=== PATIENT | male | born 1970 | race Caucasian/White ===

== ENCOUNTER 2017-08-05 09:05 | Outpatient (CLI) | payer OTHER, SELFPAY | END 2017-08-05 12:04 | PROVIDERS: Family Provider Internal Medicine Adolescent Medicine; Visit Provider Internal Medicine Adolescent Medicine | DX: Z79.01 Long term (current) use of anticoagulants (principal); Z95.2 Presence of prosthetic heart valve; Z51.81 Encounter for therapeutic drug level monitoring | CPT/HCPCS: 85610; 99211; G0463 ==

== ENCOUNTER → 2017-09-15 12:45 | Outpatient (CLI) | payer OTHER, SELFPAY | END | disposition home or self-care (01) | PROVIDERS: Family Provider Internal Medicine Adolescent Medicine; PCP Internal Medicine Adolescent Medicine; Visit Provider Internal Medicine Adolescent Medicine | DX: Z79.01 Long term (current) use of anticoagulants (principal); Z51.81 Encounter for therapeutic drug level monitoring; Z95.2 Presence of prosthetic heart valve | CPT/HCPCS: 85610 ==

== ENCOUNTER → 2017-10-26 15:52 | Outpatient (CLI) | payer OTHER, SELFPAY ==
[2017-10-26 16:15] LABS: PHA INR Fingerstick 2.5 (0.9-1.1)
== END ==
PROVIDERS: Family Provider Internal Medicine Adolescent Medicine; PCP Internal Medicine Adolescent Medicine; Visit Provider Internal Medicine Adolescent Medicine
DX: Z79.01 Long term (current) use of anticoagulants (principal); Z51.81 Encounter for therapeutic drug level monitoring; Z95.2 Presence of prosthetic heart valve
CPT/HCPCS: 85610; 99211; G0463

== ENCOUNTER 2017-11-23 15:56 | Outpatient (CLI) | payer OTHER, SELFPAY | END 2017-11-23 16:44 | disposition home or self-care (01) | LOC: ACC 15:57 | PROVIDERS: Family Provider Internal Medicine Adolescent Medicine; PCP Internal Medicine Adolescent Medicine; Visit Provider Internal Medicine Adolescent Medicine | DX: Z79.01 Long term (current) use of anticoagulants (principal); Z51.81 Encounter for therapeutic drug level monitoring; Z95.2 Presence of prosthetic heart valve | CPT/HCPCS: 85610; 99211; G0463 ==

== ENCOUNTER 2018-01-06 08:57 | Outpatient (CLI) | payer OTHER, SELFPAY | END 2018-01-06 11:23 | disposition home or self-care (01) | LOC: ACC 08:59 | PROVIDERS: PCP Internal Medicine Adolescent Medicine; Visit Provider Internal Medicine Adolescent Medicine | DX: Z79.01 Long term (current) use of anticoagulants (principal); Z51.81 Encounter for therapeutic drug level monitoring; Z95.2 Presence of prosthetic heart valve | CPT/HCPCS: 85610; 99211; G0463 ==

== ENCOUNTER 2018-02-24 08:52 | Outpatient (CLI) | payer OTHER, SELFPAY ==
[2018-02-24 12:03] LABS: PHA INR Fingerstick 2.3 (0.9-1.1)
== END 2018-02-24 12:05 | disposition home or self-care (01) ==
LOC: ACC 08:53
PROVIDERS: PCP Internal Medicine Adolescent Medicine; Visit Provider Internal Medicine Adolescent Medicine
DX: Z79.01 Long term (current) use of anticoagulants (principal); Z51.81 Encounter for therapeutic drug level monitoring
CPT/HCPCS: 85610; 99211; G0463

== ENCOUNTER 2018-04-11 08:06 | Outpatient (CLI) | payer OTHER, SELFPAY ==
[2018-04-11 10:15] LABS: PHA INR Fingerstick 2.4 (0.9-1.1)
== END 2018-04-11 10:19 | disposition home or self-care (01) ==
LOC: ACC 08:07
PROVIDERS: Family Provider Internal Medicine Adolescent Medicine; PCP Internal Medicine Adolescent Medicine; Visit Provider Internal Medicine Adolescent Medicine
DX: Z51.81 Encounter for therapeutic drug level monitoring (principal); Z79.01 Long term (current) use of anticoagulants
CPT/HCPCS: 85610; 99211; G0463

== ENCOUNTER 2018-05-24 15:54 | Outpatient (CLI) | payer OTHER, SELFPAY ==
[2018-05-24 16:17] LABS: PHA INR Fingerstick 2.3 (0.9-1.1)
== END 2018-05-24 16:19 | disposition home or self-care (01) ==
LOC: ACC 15:54
PROVIDERS: Family Provider Internal Medicine Adolescent Medicine; PCP Internal Medicine Adolescent Medicine; Visit Provider Internal Medicine Adolescent Medicine
DX: Z51.81 Encounter for therapeutic drug level monitoring (principal); Z79.01 Long term (current) use of anticoagulants; Z95.2 Presence of prosthetic heart valve
CPT/HCPCS: 85610; 99211; G0463

== ENCOUNTER 2018-06-28 08:58 | Outpatient (CLI) | payer OTHER, SELFPAY | END 2018-06-28 12:15 | disposition home or self-care (01) | LOC: ACC 09:00 | PROVIDERS: PCP Internal Medicine Adolescent Medicine; Visit Provider Internal Medicine Adolescent Medicine | DX: Z79.01 Long term (current) use of anticoagulants (principal); Z95.2 Presence of prosthetic heart valve | CPT/HCPCS: 85610; 99211; G0463 ==

== ENCOUNTER 2018-08-04 09:19 | Outpatient (CLI) | payer OTHER, SELFPAY | END 2018-08-04 15:14 | disposition home or self-care (01) | PROVIDERS: PCP Internal Medicine Adolescent Medicine; Visit Provider Internal Medicine Adolescent Medicine | DX: Z51.81 Encounter for therapeutic drug level monitoring (principal); Z79.01 Long term (current) use of anticoagulants; Z95.2 Presence of prosthetic heart valve | CPT/HCPCS: 85610; 99211; G0463 ==

== ENCOUNTER 2018-09-13 15:48 | Outpatient (CLI) | payer OTHER, SELFPAY ==
[2018-09-13 16:08] LABS: PHA INR Fingerstick 1.9 (0.9-1.1)
== END 2018-09-13 16:10 | disposition home or self-care (01) ==
LOC: ACC 15:48
PROVIDERS: PCP Internal Medicine Adolescent Medicine; Visit Provider Internal Medicine Adolescent Medicine
DX: Z51.81 Encounter for therapeutic drug level monitoring (principal); Z79.01 Long term (current) use of anticoagulants; Z95.2 Presence of prosthetic heart valve
CPT/HCPCS: 85610; 99211; G0463

== ENCOUNTER 2018-10-25 08:47 | Outpatient (CLI) | payer OTHER, SELFPAY ==
[2018-10-25 12:13] LABS: PHA INR Fingerstick 1.9 (0.9-1.1)
== END 2018-10-25 12:15 | disposition home or self-care (01) ==
LOC: ACC 08:48
PROVIDERS: PCP Internal Medicine Adolescent Medicine; Visit Provider Internal Medicine Adolescent Medicine
DX: Z51.81 Encounter for therapeutic drug level monitoring (principal); Z79.01 Long term (current) use of anticoagulants; Z95.2 Presence of prosthetic heart valve
CPT/HCPCS: 85610; 99211; G0463

== ENCOUNTER 2018-12-07 15:58 | Outpatient (CLI) | payer OTHER, SELFPAY | END 2018-12-07 16:24 | disposition home or self-care (01) | LOC: ACC 15:59 | PROVIDERS: PCP Internal Medicine Adolescent Medicine; Visit Provider Internal Medicine Adolescent Medicine | DX: Z51.81 Encounter for therapeutic drug level monitoring (principal); Z79.01 Long term (current) use of anticoagulants; Z95.2 Presence of prosthetic heart valve | CPT/HCPCS: 85610; 99211; G0463 ==

== ENCOUNTER 2019-01-18 15:48 | Outpatient (CLI) | payer OTHER, SELFPAY ==
[2019-01-18 16:16] LABS: PHA INR Fingerstick 1.8 (0.9-1.1)
== END 2019-01-18 16:17 | disposition home or self-care (01) ==
LOC: ACC 15:48
PROVIDERS: PCP Internal Medicine Adolescent Medicine; Visit Provider Internal Medicine Adolescent Medicine
DX: Z51.81 Encounter for therapeutic drug level monitoring (principal); Z79.01 Long term (current) use of anticoagulants; Z95.2 Presence of prosthetic heart valve
CPT/HCPCS: 85610; 99211; G0463

== ENCOUNTER 2019-02-21 09:00 | Outpatient (CLI) | payer OTHER, SELFPAY ==
[2019-02-21 13:06] LABS: PHA INR Fingerstick 2.1 (0.9-1.1)
== END 2019-02-21 13:23 | disposition home or self-care (01) ==
LOC: ACC 09:01
PROVIDERS: PCP Internal Medicine Adolescent Medicine; Visit Provider Internal Medicine Adolescent Medicine
DX: Z51.81 Encounter for therapeutic drug level monitoring (principal); Z79.01 Long term (current) use of anticoagulants
CPT/HCPCS: 85610; 99211; G0463

== ENCOUNTER 2019-04-10 08:22 | Outpatient (CLI) | payer OTHER, SELFPAY | END 2019-04-10 11:36 | disposition home or self-care (01) | LOC: ACC 08:23 | PROVIDERS: PCP Internal Medicine Adolescent Medicine; Visit Provider Internal Medicine Adolescent Medicine | DX: Z51.81 Encounter for therapeutic drug level monitoring (principal); Z79.01 Long term (current) use of anticoagulants; Z95.2 Presence of prosthetic heart valve | CPT/HCPCS: 85610; 99211; G0463 ==

== ENCOUNTER 2019-05-22 15:50 | Outpatient (CLI) | payer OTHER, SELFPAY ==
[2019-05-22 17:02] LABS: PHA INR Fingerstick 1.9 (0.9-1.1)
== END 2019-05-22 17:05 | disposition home or self-care (01) ==
LOC: ACC 15:51
PROVIDERS: PCP Internal Medicine Adolescent Medicine; Visit Provider Internal Medicine Adolescent Medicine
DX: Z51.81 Encounter for therapeutic drug level monitoring (principal); Z79.01 Long term (current) use of anticoagulants; Z95.2 Presence of prosthetic heart valve
CPT/HCPCS: 85610; 99211; G0463

== ENCOUNTER 2019-07-06 08:02 | Outpatient (CLI) | payer OTHER, SELFPAY ==
[2019-07-06 09:26] LABS: PHA INR Fingerstick 2.4 (0.9-1.1)
== END 2019-07-06 09:27 | disposition home or self-care (01) ==
LOC: ACC 08:02
PROVIDERS: PCP Internal Medicine Adolescent Medicine; Visit Provider Internal Medicine Adolescent Medicine
DX: Z51.81 Encounter for therapeutic drug level monitoring (principal); Z79.01 Long term (current) use of anticoagulants; Z95.2 Presence of prosthetic heart valve
CPT/HCPCS: 85610; 99211; G0463

== ENCOUNTER 2019-08-21 15:43 | Outpatient (CLI) | payer OTHER, SELFPAY | END 2019-08-21 16:23 | disposition home or self-care (01) | LOC: ACC 15:43 | PROVIDERS: PCP Internal Medicine Adolescent Medicine; Visit Provider Internal Medicine Adolescent Medicine | DX: Z51.81 Encounter for therapeutic drug level monitoring (principal); Z79.01 Long term (current) use of anticoagulants | CPT/HCPCS: 85610; 99211; G0463 ==

== ENCOUNTER 2019-10-02 15:45 | Outpatient (CLI) | payer OTHER, SELFPAY | END 2019-10-02 16:20 | disposition home or self-care (01) | LOC: ACC 15:46 | PROVIDERS: PCP Internal Medicine Adolescent Medicine; Visit Provider Internal Medicine Adolescent Medicine | DX: Z51.81 Encounter for therapeutic drug level monitoring (principal); Z79.01 Long term (current) use of anticoagulants; Z95.2 Presence of prosthetic heart valve | CPT/HCPCS: 85610; 99211; G0463 ==

== ENCOUNTER 2019-11-27 11:51 | Outpatient (CLI) | payer OTHER, SELFPAY ==
[2019-11-27 15:06] LABS: PHA INR Fingerstick 1.9 (0.9-1.1)
== END 2019-11-27 14:33 | disposition home or self-care (01) ==
LOC: ACC 11:51
PROVIDERS: PCP Internal Medicine Adolescent Medicine; Visit Provider Internal Medicine Adolescent Medicine
DX: Z51.81 Encounter for therapeutic drug level monitoring (principal); Z79.01 Long term (current) use of anticoagulants; Z95.2 Presence of prosthetic heart valve
CPT/HCPCS: 85610; 99211; G0463

== ENCOUNTER 2020-01-22 15:56 | Outpatient (CLI) | payer OTHER, SELFPAY ==
[2020-01-22 16:26] LABS: PHA INR Fingerstick 2.2 (0.9-1.1)
== END 2020-01-22 16:25 | disposition home or self-care (01) ==
LOC: ACC 15:58
PROVIDERS: PCP Internal Medicine Adolescent Medicine; Visit Provider Internal Medicine Adolescent Medicine
DX: Z51.81 Encounter for therapeutic drug level monitoring (principal); Z79.01 Long term (current) use of anticoagulants; Z95.2 Presence of prosthetic heart valve
CPT/HCPCS: 85610; 99211; G0463

== ENCOUNTER 2020-03-04 13:03 | Outpatient (CLI) | payer OTHER, SELFPAY | END 2020-03-04 15:13 | disposition home or self-care (01) | LOC: ACC 13:04 | PROVIDERS: PCP Internal Medicine Adolescent Medicine; Visit Provider Internal Medicine Adolescent Medicine | DX: Z51.81 Encounter for therapeutic drug level monitoring (principal); Z79.01 Long term (current) use of anticoagulants; Z95.2 Presence of prosthetic heart valve | CPT/HCPCS: 99211; G0463 ==

== ENCOUNTER 2020-04-15 08:26 | Outpatient (CLI) | payer OTHER, SELFPAY ==
[2020-04-15 09:39] LABS: PHA INR Fingerstick 1.9 (0.9-1.1)
== END 2020-04-15 09:44 | disposition home or self-care (01) ==
LOC: ACC 08:27
PROVIDERS: PCP Internal Medicine Adolescent Medicine; Visit Provider Internal Medicine Adolescent Medicine
DX: Z79.01 Long term (current) use of anticoagulants (principal)
CPT/HCPCS: 85610; 99211; G0463

== ENCOUNTER 2020-05-29 08:16 | Outpatient (CLI) | payer OTHER, SELFPAY | END 2020-05-29 10:23 | disposition home or self-care (01) | LOC: ACC 08:17 | PROVIDERS: PCP Internal Medicine Adolescent Medicine; Visit Provider Internal Medicine Adolescent Medicine | DX: Z51.81 Encounter for therapeutic drug level monitoring (principal); Z79.01 Long term (current) use of anticoagulants; Z95.2 Presence of prosthetic heart valve | CPT/HCPCS: 85610; 99211; G0463 ==

== ENCOUNTER → 2020-06-09 16:34 | Outpatient (CLI) | payer OTHER, SELFPAY ==
[2020-06-09 17:33] LABS: Basophils # 0.1 K/mm3 (0-0.2); Basophils % 0.4 % (0.1-2.0); Eosinophils # 0.1 K/mm3 (0.0-0.4); Eosinophils % 0.8 % (0.1-12.0); Hematocrit 46.8 % (42.0-52.0); Hemoglobin 15.6 g/dL (14.1-18.0); Lymphocytes # 3.7 K/mm3 (0.7-4.5); Lymphocytes % 28.9 % (10-50); Mean Corpuscular HGB Conc 33.5 g/dL (31.8-35.4); Mean Corpuscular Hemoglobin 29.6 pg (27.0-31.2); Mean Corpuscular Volume 88.5 fl (80-94); Mean Platelet Volume 8.5 fl (7.4-10.4); Monocytes # 0.6 K/mm3 (0.1-1.0); Monocytes % 4.9 % (1.7-9.3); Neutrophils # 8.3 K/mm3 (1.8-7.8); Platelet Count 328 K/mm3 (142-424); Red Blood Count 5.28 M/mm3 (4.60-6.20); White Blood Count 12.7 K/mm3 (4.8-10.8)
[2020-06-09 19:14] LABS: Chloride 102 mmol/L (98-107); Potassium 4.9 mmoL/L (3.5-5.1); Sodium 142 mmol/L (136-145)
[2020-06-09 19:17] LABS: Alanine Aminotransferase 27 U/L (12-78); Albumin Level 4.8 g/dl (3.5-5.0); Albumin/Globulin Ratio 1.4 (1.1-1.8); Alkaline Phosphatase 61 U/L (38-126); Anion Gap 14.9 mEq/L (5-15); Aspartate Amino Transferase 31 U/L (17-59); Bilirubin,Total 0.7 mg/dl (0.2-1.3); Blood Urea Nitrogen 25 mg/dl (9-20); Calcium 10.1 mg/dl (8.4-10.2); Carbon Dioxide 30 mmol/L (22.0-30.0); Chol/HDL Ratio 4.7 (1-3.5); Cholesterol 211 mg/dl (140-200); Estimated Glomerular Filt Rate 71 ml/min (>60); GFR (African American) 86 ML/MIN (>60); Globulin 3.4 g/dL (1.3-3.2); Glucose 96 mg/dl (74-100); HDL Cholesterol 45 mg/dl (40-60); Total Protein,Serum 8.2 g/dl (6.3-8.2); Triglycerides 158 mg/dl (30-150); VLDL Cholesterol 32 mg/dL (0-40)
[2020-06-09 19:28] LABS: Direct LDL Cholesterol 124.17 mg/dL (100-129)
[2020-06-09 19:48] LABS: Thyroid Stimulating Hormone 3.98 uIU/mL (0.465-4.68)
== END ==
PROVIDERS: Visit Provider Internal Medicine Adolescent Medicine
DX: I47.1 Supraventricular tachycardia (principal); E78.5 Hyperlipidemia, unspecified; E03.9 Hypothyroidism, unspecified
CPT/HCPCS: 36415; 80053; 80061; 84443; 85025

== ENCOUNTER 2020-07-04 09:59 | Outpatient (CLI) | payer OTHER, SELFPAY | END 2020-07-04 10:47 | disposition home or self-care (01) | LOC: ACC 10:00 | PROVIDERS: PCP Internal Medicine Adolescent Medicine; Visit Provider Internal Medicine Adolescent Medicine | DX: Z51.81 Encounter for therapeutic drug level monitoring (principal); Z79.01 Long term (current) use of anticoagulants; Z95.2 Presence of prosthetic heart valve | CPT/HCPCS: 99211; G0463 ==

== ENCOUNTER 2020-08-06 10:01 | Outpatient (CLI) | payer OTHER, SELFPAY ==
[2020-08-06 12:23] LABS: PHA INR Fingerstick 2.4 (0.9-1.1)
== END 2020-08-06 13:25 | disposition home or self-care (01) ==
LOC: ACC 10:02
PROVIDERS: PCP Internal Medicine Adolescent Medicine; Visit Provider Internal Medicine Adolescent Medicine
DX: Z51.81 Encounter for therapeutic drug level monitoring (principal); Z79.01 Long term (current) use of anticoagulants; Z95.2 Presence of prosthetic heart valve
CPT/HCPCS: 85610; 99211; G0463

== ENCOUNTER → 2020-08-22 11:57 | Outpatient (CLI) | payer OTHER, SELFPAY ==
[2020-08-22 14:28] LABS: Basophils % 0.3 % (0.1-2.0); Eosinophils # 0.1 K/mm3 (0.0-0.4); Eosinophils % 0.7 % (0.1-12.0); Hematocrit 44.6 % (42.0-52.0); Hemoglobin 14.9 g/dL (14.1-18.0); Lymphocytes # 2.1 K/mm3 (0.7-4.5); Lymphocytes % 21.1 % (10-50); Mean Corpuscular HGB Conc 33.4 g/dL (31.8-35.4); Mean Corpuscular Hemoglobin 29.7 pg (27.0-31.2); Mean Platelet Volume 8.9 fl (7.4-10.4); Monocytes # 0.5 K/mm3 (0.1-1.0); Neutrophils # 7.2 K/mm3 (1.8-7.8); Neutrophils % 72.8 % (37.0-80.0); Platelet Count 313 K/mm3 (142-424); Red Blood Count 5.01 M/mm3 (4.60-6.20); White Blood Count 9.9 K/mm3 (4.8-10.8)
== END ==
PROVIDERS: Visit Provider Internal Medicine Adolescent Medicine
DX: D72.829 Elevated white blood cell count, unspecified (principal)
CPT/HCPCS: 36415; 85025

== ENCOUNTER 2020-09-16 16:04 | Outpatient (CLI) | payer OTHER, SELFPAY ==
[2020-09-16 16:37] LABS: PHA INR Fingerstick 2.2 (0.9-1.1)
== END 2020-09-16 16:38 | disposition home or self-care (01) ==
LOC: ACC 16:05
PROVIDERS: PCP Internal Medicine Adolescent Medicine; Visit Provider Internal Medicine Adolescent Medicine
DX: Z51.81 Encounter for therapeutic drug level monitoring (principal); Z79.01 Long term (current) use of anticoagulants
CPT/HCPCS: 85610; 99211; G0463

== ENCOUNTER 2020-10-29 15:41 | Outpatient (CLI) | payer OTHER, SELFPAY ==
[2020-10-29 16:17] LABS: PHA INR Fingerstick 2.2 (0.9-1.1)
== END 2020-10-29 16:20 | disposition home or self-care (01) ==
LOC: ACC 15:42
PROVIDERS: PCP Internal Medicine Adolescent Medicine; Visit Provider Internal Medicine Adolescent Medicine
DX: Z51.81 Encounter for therapeutic drug level monitoring (principal); Z79.01 Long term (current) use of anticoagulants; Z95.2 Presence of prosthetic heart valve
CPT/HCPCS: 85610; 99211; G0463

== ENCOUNTER 2020-12-10 15:30 | Outpatient (CLI) | payer OTHER, SELFPAY | END 2020-12-10 16:07 | disposition home or self-care (01) | LOC: ACC 15:31 | PROVIDERS: PCP Internal Medicine Adolescent Medicine; Visit Provider Internal Medicine Adolescent Medicine | DX: Z79.01 Long term (current) use of anticoagulants (principal) | CPT/HCPCS: 85610; 99211; G0463 ==

== ENCOUNTER 2021-01-22 15:59 | Outpatient (CLI) | payer OTHER, SELFPAY ==
[2021-01-22 16:27] LABS: PHA INR Fingerstick 2.7 (0.9-1.1)
== END 2021-01-22 16:36 | disposition home or self-care (01) ==
LOC: ACC 16:00
PROVIDERS: PCP Internal Medicine Adolescent Medicine; Visit Provider Internal Medicine Adolescent Medicine
DX: Z51.81 Encounter for therapeutic drug level monitoring (principal); Z79.01 Long term (current) use of anticoagulants; Z95.2 Presence of prosthetic heart valve
CPT/HCPCS: 85610; 99211; G0463

== ENCOUNTER 2021-02-19 15:53 | Outpatient (CLI) | payer OTHER, SELFPAY ==
[2021-02-19 16:31] LABS: PHA INR Fingerstick 2.3 (0.9-1.1)
== END 2021-02-19 16:33 | disposition home or self-care (01) ==
LOC: ACC 15:54
PROVIDERS: PCP Internal Medicine Adolescent Medicine; Visit Provider Internal Medicine Adolescent Medicine
DX: Z51.81 Encounter for therapeutic drug level monitoring (principal); Z79.01 Long term (current) use of anticoagulants; Z95.2 Presence of prosthetic heart valve
CPT/HCPCS: 85610; 99211; G0463

== ENCOUNTER 2021-04-02 15:56 | Outpatient (CLI) | payer OTHER, SELFPAY ==
[2021-04-02 16:21] LABS: PHA INR Fingerstick 2.6 (0.9-1.1)
== END 2021-04-02 16:25 | disposition home or self-care (01) ==
LOC: ACC 15:57
PROVIDERS: PCP Internal Medicine Adolescent Medicine; Visit Provider Internal Medicine Adolescent Medicine
DX: Z51.81 Encounter for therapeutic drug level monitoring (principal); Z79.01 Long term (current) use of anticoagulants; Z95.2 Presence of prosthetic heart valve
CPT/HCPCS: 85610; 99211; G0463

== ENCOUNTER 2021-06-04 15:04 | Outpatient (CLI) | payer OTHER, SELFPAY ==
[2021-06-04 15:52] LABS: PHA INR Fingerstick 2.1 (0.9-1.1)
== END 2021-06-04 15:53 | disposition home or self-care (01) ==
LOC: ACC 15:06
PROVIDERS: PCP Internal Medicine Adolescent Medicine; Visit Provider Internal Medicine Adolescent Medicine
DX: Z51.81 Encounter for therapeutic drug level monitoring (principal); Z79.01 Long term (current) use of anticoagulants
CPT/HCPCS: 85610; 99211; G0463

== ENCOUNTER 2021-07-23 15:54 | Outpatient (CLI) | payer OTHER, SELFPAY | END 2021-07-23 16:20 | disposition home or self-care (01) | LOC: ACC 15:54 | PROVIDERS: PCP Internal Medicine Adolescent Medicine; Visit Provider Internal Medicine Adolescent Medicine | DX: Z51.81 Encounter for therapeutic drug level monitoring (principal); Z79.01 Long term (current) use of anticoagulants | CPT/HCPCS: 85610; 99211; G0463 ==

== ENCOUNTER 2021-09-24 07:55 | Outpatient (CLI) | payer OTHER, SELFPAY ==
[2021-09-24 08:35] LABS: PHA INR Fingerstick 1.7 (0.9-1.1)
== END 2021-09-24 08:39 | disposition home or self-care (01) ==
LOC: ACC 07:56
PROVIDERS: PCP Internal Medicine Adolescent Medicine; Visit Provider Internal Medicine Adolescent Medicine
DX: Z51.81 Encounter for therapeutic drug level monitoring (principal); Z79.01 Long term (current) use of anticoagulants
CPT/HCPCS: 85610; 99211; G0463

== ENCOUNTER 2021-11-05 15:54 | Outpatient (CLI) | payer OTHER, SELFPAY ==
[2021-11-05 16:22] LABS: PHA INR Fingerstick 1.9 (0.9-1.1)
== END 2021-11-05 16:24 | disposition home or self-care (01) ==
LOC: ACC 15:55
PROVIDERS: PCP Internal Medicine Adolescent Medicine; Visit Provider Internal Medicine Adolescent Medicine
DX: Z51.81 Encounter for therapeutic drug level monitoring (principal); Z79.01 Long term (current) use of anticoagulants; Z95.2 Presence of prosthetic heart valve
CPT/HCPCS: 85610; 99211; G0463

== ENCOUNTER → 2021-11-12 09:14 | Outpatient (CLI) | payer OTHER, SELFPAY ==
[2021-11-12 14:18] LABS: Basophils # 0.1 K/mm3 (0-0.2); Basophils % 0.5 % (0.1-2.0); Eosinophils # 0.4 K/mm3 (0.0-0.4); Eosinophils % 4.4 % (0.1-12.0); Hematocrit 46.3 % (42.0-52.0); Lymphocytes # 2.7 K/mm3 (0.7-4.5); Lymphocytes % 27.4 % (10-50); Mean Corpuscular HGB Conc 32.4 g/dL (31.8-35.4); Mean Corpuscular Hemoglobin 29.9 pg (27.0-31.2); Mean Corpuscular Volume 92.1 fl (80-94); Mean Platelet Volume 10.5 fl (7.4-10.4); Monocytes # 0.6 K/mm3 (0.1-1.0); Monocytes % 5.9 % (1.7-9.3); Neutrophils # 6.1 K/mm3 (1.8-7.8); Neutrophils % 61.8 % (37.0-80.0); Platelet Count 301 K/mm3 (142-424); Red Blood Count 5.02 M/mm3 (4.60-6.20); Red Cell Distribution Width 13.6 % (11.5-17.5); White Blood Count 9.9 K/mm3 (4.8-10.8)
[2021-11-12 14:54] LABS: Triiodothryronine (T3) Uptake 36 % (23.5-40.5)
[2021-11-12 14:55] LABS: Chloride 104 mmol/L (98-107); Free Thyroxine Index 2.3 ug/dL (5.93-13.13); Potassium 3.8 mmoL/L (3.5-5.1); Sodium 136 mmol/L (136-145); T4 (Thyroxine) 6.5 ug/dl (5.53-11.0)
[2021-11-12 14:57] LABS: Alanine Aminotransferase 38 U/L (12-78); Aspartate Amino Transferase 33 U/L (17-59); Blood Urea Nitrogen 26 mg/dl (9-20); Estimated Glomerular Filt Rate 89 ml/min (>60); GFR (African American) 108 ML/MIN (>60)
[2021-11-12 14:58] LABS: Albumin Level 3.8 g/dl (3.5-5.0); Albumin/Globulin Ratio 1.4 (1.1-1.8); Alkaline Phosphatase 56 U/L (38-126); Anion Gap 10.8 mEq/L (5-15); Bilirubin,Total 0.5 mg/dl (0.2-1.3); Calcium 8.2 mg/dl (8.4-10.2); Carbon Dioxide 25 mmol/L (22.0-30.0); Cholesterol 153 mg/dl (140-200); Globulin 2.8 g/dL (1.3-3.2); Glucose 95 mg/dl (74-100); Total Protein,Serum 6.6 g/dl (6.3-8.2); Triglycerides 218 mg/dl (30-150); VLDL Cholesterol 44 mg/dL (0-40)
[2021-11-12 14:59] LABS: Chol/HDL Ratio 4.1 (1-3.5); HDL Cholesterol 37 mg/dl (40-60)
[2021-11-12 15:09] LABS: Direct LDL Cholesterol 86.04 mg/dL (100-129)
== END ==
PROVIDERS: Visit Provider Internal Medicine Adolescent Medicine
DX: E03.9 Hypothyroidism, unspecified (principal); E78.5 Hyperlipidemia, unspecified; D72.829 Elevated white blood cell count, unspecified
CPT/HCPCS: 36415; 80053; 80061; 84436; 84443; 84479; 85025

== ENCOUNTER 2021-12-03 15:54 | Outpatient (CLI) | payer OTHER, SELFPAY | END 2021-12-03 16:33 | disposition home or self-care (01) | LOC: ACC 15:54 | PROVIDERS: Visit Provider Internal Medicine Adolescent Medicine | DX: Z51.81 Encounter for therapeutic drug level monitoring (principal); Z79.01 Long term (current) use of anticoagulants; Z95.2 Presence of prosthetic heart valve | CPT/HCPCS: 85610; 99211; G0463 ==

== ENCOUNTER 2021-12-29 15:51 | Outpatient (CLI) | payer OTHER, SELFPAY ==
[2021-12-29 16:17] LABS: PHA INR Fingerstick 2.3 (0.9-1.1)
== END 2021-12-29 16:19 | disposition home or self-care (01) ==
LOC: ACC 15:52
PROVIDERS: PCP Pharmacist; Visit Provider Internal Medicine Adolescent Medicine
DX: Z51.81 Encounter for therapeutic drug level monitoring (principal); Z79.01 Long term (current) use of anticoagulants; Z95.2 Presence of prosthetic heart valve
CPT/HCPCS: 85610; 99211; G0463

== ENCOUNTER 2022-02-12 09:03 | Outpatient (CLI) | payer OTHER, SELFPAY ==
[2022-02-12 16:11] LABS: PHA INR Fingerstick 2.7 (0.9-1.1)
== END 2022-02-12 16:16 | disposition home or self-care (01) ==
LOC: ACC 09:04
PROVIDERS: PCP Internal Medicine Adolescent Medicine; Visit Provider Internal Medicine Adolescent Medicine
DX: Z51.81 Encounter for therapeutic drug level monitoring (principal); Z79.01 Long term (current) use of anticoagulants; Z95.2 Presence of prosthetic heart valve
CPT/HCPCS: 85610; 99211; G0463

== ENCOUNTER 2022-03-26 08:29 | Outpatient (CLI) | payer OTHER, SELFPAY ==
[2022-03-26 15:18] LABS: PHA INR Fingerstick 2.3 (0.9-1.1)
== END 2022-03-26 15:19 | disposition home or self-care (01) ==
LOC: ACC 08:30
PROVIDERS: PCP Internal Medicine Adolescent Medicine; Visit Provider Internal Medicine Adolescent Medicine
DX: Z51.81 Encounter for therapeutic drug level monitoring (principal); Z79.01 Long term (current) use of anticoagulants; Z95.2 Presence of prosthetic heart valve
CPT/HCPCS: 85610; 99211; G0463

== ENCOUNTER 2022-05-07 08:28 | Outpatient (CLI) | payer OTHER, SELFPAY ==
[2022-05-07 10:55] LABS: PHA INR Fingerstick 2.1 (0.9-1.1)
== END 2022-05-07 10:56 ==
LOC: ACC 08:28
PROVIDERS: PCP Internal Medicine Adolescent Medicine; Visit Provider Internal Medicine Adolescent Medicine
DX: Z51.81 Encounter for therapeutic drug level monitoring (principal); Z79.01 Long term (current) use of anticoagulants; Z95.2 Presence of prosthetic heart valve
CPT/HCPCS: 85610; 99211; G0463

== ENCOUNTER 2022-06-18 15:40 | Outpatient (CLI) | payer OTHER, SELFPAY ==
[2022-06-18 16:13] LABS: PHA INR Fingerstick 2.8 (0.9-1.1)
== END 2022-06-18 16:14 ==
LOC: ACC 15:41
PROVIDERS: PCP Internal Medicine Adolescent Medicine; Visit Provider Internal Medicine Adolescent Medicine
DX: Z51.81 Encounter for therapeutic drug level monitoring (principal); Z79.01 Long term (current) use of anticoagulants; Z95.2 Presence of prosthetic heart valve
CPT/HCPCS: 85610; 99211; G0463

== ENCOUNTER 2022-07-28 15:39 | Outpatient (CLI) | payer OTHER, SELFPAY ==
[2022-07-28 16:08] LABS: PHA INR Fingerstick 2.7 (0.9-1.1)
== END 2022-07-28 16:11 ==
LOC: ACC 15:39
PROVIDERS: PCP Internal Medicine Adolescent Medicine; Visit Provider Internal Medicine Adolescent Medicine
DX: Z51.81 Encounter for therapeutic drug level monitoring (principal); Z79.01 Long term (current) use of anticoagulants; Z95.2 Presence of prosthetic heart valve
CPT/HCPCS: 85610; 99211; G0463

== ENCOUNTER 2022-09-07 11:34 | Outpatient (CLI) | payer OTHER, SELFPAY ==
[2022-09-07 13:29] LABS: PHA INR Fingerstick 2.6 (0.9-1.1)
== END 2022-09-07 13:31 ==
LOC: ACC 11:35
PROVIDERS: PCP Internal Medicine Adolescent Medicine; Visit Provider Internal Medicine Adolescent Medicine
DX: Z51.81 Encounter for therapeutic drug level monitoring (principal); Z79.1 Long term (current) use of non-steroidal anti-inflammatories (NSAID); Z95.2 Presence of prosthetic heart valve
CPT/HCPCS: 85610; 99211; G0463

== ENCOUNTER 2022-10-15 09:11 | Outpatient (CLI) | payer OTHER, SELFPAY ==
[2022-10-15 10:45] LABS: PHA INR Fingerstick 2.8 (0.9-1.1)
== END 2022-10-15 10:46 ==
LOC: ACC 09:11
PROVIDERS: PCP Internal Medicine Adolescent Medicine; Visit Provider Internal Medicine Adolescent Medicine
DX: Z51.81 Encounter for therapeutic drug level monitoring (principal); Z79.01 Long term (current) use of anticoagulants; Z95.2 Presence of prosthetic heart valve
CPT/HCPCS: 85610; 99211; G0463

== ENCOUNTER 2022-11-26 15:57 | Outpatient (CLI) | payer OTHER, SELFPAY ==
[2022-11-26 16:14] LABS: PHA INR Fingerstick 2.3 (0.9-1.1)
== END 2022-11-26 16:15 ==
LOC: ACC 15:58
PROVIDERS: PCP Internal Medicine Adolescent Medicine; Visit Provider Internal Medicine Adolescent Medicine
DX: Z51.81 Encounter for therapeutic drug level monitoring (principal); Z79.01 Long term (current) use of anticoagulants; Z95.2 Presence of prosthetic heart valve
CPT/HCPCS: 85610; 99211; G0463

== ENCOUNTER 2023-01-07 15:58 | Outpatient (CLI) | payer OTHER, SELFPAY ==
[2023-01-07 16:23] LABS: PHA INR Fingerstick 2.9 (0.9-1.1)
== END 2023-01-07 16:25 ==
LOC: ACC 15:58
PROVIDERS: PCP Internal Medicine Adolescent Medicine; Visit Provider Internal Medicine Adolescent Medicine
DX: Z51.81 Encounter for therapeutic drug level monitoring (principal); Z79.01 Long term (current) use of anticoagulants
CPT/HCPCS: 85610; 99211; G0463

== ENCOUNTER 2023-02-25 08:46 | Outpatient (CLI) | payer OTHER, SELFPAY ==
[2023-02-25 12:08] LABS: PHA INR Fingerstick 2.8 (0.9-1.1)
== END 2023-02-25 13:02 ==
LOC: ACC 08:46
PROVIDERS: PCP Internal Medicine Adolescent Medicine; Visit Provider Internal Medicine Adolescent Medicine
DX: Z51.81 Encounter for therapeutic drug level monitoring (principal); Z79.01 Long term (current) use of anticoagulants
CPT/HCPCS: 85610; 99211; G0463

== ENCOUNTER 2023-04-08 14:26 | Outpatient (CLI) | payer OTHER, SELFPAY ==
[2023-04-08 14:53] LABS: PHA INR Fingerstick 2.9 (0.9-1.1)
== END 2023-04-08 14:55 ==
LOC: ACC 14:27
PROVIDERS: PCP Internal Medicine Adolescent Medicine; Visit Provider Internal Medicine Adolescent Medicine
DX: Z79.01 Long term (current) use of anticoagulants (principal); Z51.81 Encounter for therapeutic drug level monitoring; Z95.2 Presence of prosthetic heart valve
CPT/HCPCS: 85610; 99211; G0463

== ENCOUNTER 2023-05-20 15:57 | Outpatient (CLI) | payer OTHER, SELFPAY ==
[2023-05-20 16:37] LABS: PHA INR Fingerstick 3.4 (0.9-1.1)
== END 2023-05-20 16:38 ==
LOC: ACC 15:58
PROVIDERS: PCP Internal Medicine Adolescent Medicine; Visit Provider Internal Medicine Adolescent Medicine
DX: Z79.01 Long term (current) use of anticoagulants (principal); Z51.81 Encounter for therapeutic drug level monitoring; Z95.3 Presence of xenogenic heart valve
CPT/HCPCS: 85610; 99211; G0463

== ENCOUNTER 2023-06-17 15:47 | Outpatient (CLI) | payer OTHER, SELFPAY ==
[2023-06-17 16:22] LABS: PHA INR Fingerstick 2.9 (0.9-1.1)
== END 2023-06-17 16:23 ==
LOC: ACC 15:48
PROVIDERS: PCP Internal Medicine Adolescent Medicine; Visit Provider Internal Medicine Adolescent Medicine
DX: Z51.81 Encounter for therapeutic drug level monitoring (principal); Z79.01 Long term (current) use of anticoagulants
CPT/HCPCS: 85610; 99211; G0463

== ENCOUNTER 2023-08-02 08:30 | Outpatient (CLI) | payer OTHER, SELFPAY ==
[2023-08-02 08:50] LABS: PHA INR Fingerstick 2.3 (0.9-1.1)
== END 2023-08-02 08:52 ==
LOC: ACC 08:30
PROVIDERS: PCP Internal Medicine Adolescent Medicine; Visit Provider Internal Medicine Adolescent Medicine
DX: Z51.81 Encounter for therapeutic drug level monitoring (principal); Z79.01 Long term (current) use of anticoagulants; Z95.2 Presence of prosthetic heart valve
CPT/HCPCS: 85610; 99211; G0463

== ENCOUNTER 2023-09-13 12:03 | Outpatient (CLI) | payer BC, SELFPAY | END 2023-09-13 14:25 | LOC: ACC 12:04 | PROVIDERS: PCP Internal Medicine Adolescent Medicine; Visit Provider Internal Medicine Adolescent Medicine | DX: Z51.81 Encounter for therapeutic drug level monitoring (principal); Z79.01 Long term (current) use of anticoagulants; Z95.2 Presence of prosthetic heart valve | CPT/HCPCS: 85610; 99211; G0463 ==

== ENCOUNTER 2023-10-24 15:54 | Outpatient (CLI) | payer BC, SELFPAY ==
[2023-10-24 16:11] LABS: PHA INR Fingerstick 2.1 (0.9-1.1)
== END 2023-10-24 16:13 ==
LOC: ACC 15:56
PROVIDERS: PCP Internal Medicine Adolescent Medicine; Visit Provider Internal Medicine Adolescent Medicine
DX: Z79.01 Long term (current) use of anticoagulants (principal); Z51.81 Encounter for therapeutic drug level monitoring; Z95.2 Presence of prosthetic heart valve
CPT/HCPCS: 85610; 99211; G0463

== ENCOUNTER 2023-12-06 14:52 | Outpatient (CLI) | payer BC, SELFPAY ==
[2023-12-06 16:26] LABS: PHA INR Fingerstick 2.2 (0.9-1.1)
== END 2023-12-06 16:29 ==
LOC: ACC 14:53
PROVIDERS: PCP Internal Medicine Adolescent Medicine; Visit Provider Internal Medicine Adolescent Medicine
DX: Z51.81 Encounter for therapeutic drug level monitoring (principal); Z79.01 Long term (current) use of anticoagulants; Z95.2 Presence of prosthetic heart valve
CPT/HCPCS: 85610; 99211; G0463

== ENCOUNTER 2024-01-18 15:57 | Outpatient (CLI) | payer BC, SELFPAY ==
[2024-01-18 16:32] LABS: PHA INR Fingerstick 2.2 (0.9-1.1)
== END 2024-01-18 16:34 ==
LOC: ACC 15:58
PROVIDERS: PCP Internal Medicine Adolescent Medicine; Visit Provider Internal Medicine Adolescent Medicine
DX: Z95.2 Presence of prosthetic heart valve (principal); Z79.01 Long term (current) use of anticoagulants
CPT/HCPCS: 85610; 99211; G0463

== ENCOUNTER 2024-02-24 08:57 | Outpatient (CLI) | payer BC, SELFPAY | END 2024-02-24 09:17 | LOC: ACC 08:57 | PROVIDERS: PCP Internal Medicine Adolescent Medicine; Visit Provider Internal Medicine Adolescent Medicine | DX: Z95.2 Presence of prosthetic heart valve (principal); Z79.01 Long term (current) use of anticoagulants | CPT/HCPCS: 85610; 99211; G0463 ==

== ENCOUNTER 2024-04-06 15:23 | Outpatient (CLI) | payer BC, SELFPAY ==
[2024-04-06 16:12] LABS: PHA INR Fingerstick 2.3 (0.9-1.1)
== END 2024-04-06 16:14 ==
LOC: ACC 15:25
PROVIDERS: PCP Internal Medicine Adolescent Medicine; Visit Provider Internal Medicine Adolescent Medicine
DX: Z79.01 Long term (current) use of anticoagulants (principal); Z95.2 Presence of prosthetic heart valve
CPT/HCPCS: 85610; 99211; G0463

== ENCOUNTER 2024-05-17 10:58 | Outpatient (CLI) | payer BC, SELFPAY ==
[2024-05-17 13:57] LABS: PHA INR Fingerstick 2.1 (0.9-1.1)
== END 2024-05-17 14:09 ==
LOC: ACC 10:59
PROVIDERS: PCP Internal Medicine Adolescent Medicine; Visit Provider Internal Medicine Adolescent Medicine
DX: Z95.2 Presence of prosthetic heart valve (principal); Z79.01 Long term (current) use of anticoagulants
CPT/HCPCS: 85610; 99211; G0463

== ENCOUNTER 2024-07-04 08:46 | Outpatient (CLI) | payer BC, SELFPAY | END 2024-07-04 10:32 | LOC: ACC 08:47 | PROVIDERS: PCP Internal Medicine Adolescent Medicine; Visit Provider Internal Medicine Adolescent Medicine | DX: Z79.01 Long term (current) use of anticoagulants (principal); Z95.2 Presence of prosthetic heart valve | CPT/HCPCS: 85610; 99211; G0463 ==

== ENCOUNTER 2024-08-20 15:14 | Outpatient (CLI) | payer OTHER, SELFPAY ==
[2024-08-20 15:51] LABS: PHA INR Fingerstick 1.9 (0.9-1.1)
== END 2024-08-20 15:52 ==
LOC: ACC 15:15
PROVIDERS: PCP Internal Medicine Adolescent Medicine; Visit Provider Internal Medicine Adolescent Medicine
DX: Z79.01 Long term (current) use of anticoagulants (principal); Z95.2 Presence of prosthetic heart valve
CPT/HCPCS: 85610; 99211; G0463

== ENCOUNTER 2024-09-19 11:38 | Outpatient (CLI) | payer BC, SELFPAY ==
[2024-09-19 14:21] LABS: PHA INR Fingerstick 2.4 (0.9-1.1)
== END 2024-09-19 14:27 ==
LOC: ACC 11:39
PROVIDERS: PCP Internal Medicine Adolescent Medicine; Visit Provider Internal Medicine Adolescent Medicine
DX: Z79.01 Long term (current) use of anticoagulants (principal); Z95.2 Presence of prosthetic heart valve
CPT/HCPCS: 85610; 99211; G0463

== ENCOUNTER 2024-10-31 15:35 | Outpatient (CLI) | payer BC, SELFPAY ==
[2024-10-31 15:48] LABS: PHA INR Fingerstick 2.4 (0.9-1.1)
== END 2024-10-31 15:49 ==
LOC: ACC 15:35
PROVIDERS: PCP Internal Medicine Adolescent Medicine; Visit Provider Internal Medicine Adolescent Medicine
DX: Z95.2 Presence of prosthetic heart valve (principal); Z79.01 Long term (current) use of anticoagulants
CPT/HCPCS: 85610; 99211; G0463

== ENCOUNTER 2024-12-12 15:12 | Outpatient (CLI) | payer BC, SELFPAY ==
[2024-12-12 15:49] LABS: PHA INR Fingerstick 2.6 (0.9-1.1)
== END 2024-12-12 15:52 ==
LOC: ACC 15:13
PROVIDERS: PCP Internal Medicine Adolescent Medicine; Visit Provider Internal Medicine Adolescent Medicine
DX: Z79.01 Long term (current) use of anticoagulants (principal); Z95.2 Presence of prosthetic heart valve
CPT/HCPCS: 85610; 99211; G0463

== ENCOUNTER 2025-01-25 15:21 | Outpatient (CLI) | payer BC, SELFPAY ==
--- OUTSIDE RECORDS SUMMARY | 2025-01-25 15:23 | XMS_ITS | Referral Summary ---
Author Organization [employer] Address [address] [place] [address] Care Team Providers Care Human Service Worker Name Role Phone Rene Greene MD Primary Care Provider + [phone] Allergies No known active allergies Medications aspirin 81 MG EC tablet Take 1 tablet (81 mg total) by mouth daily. Active atorvastatin (LIPITOR) 40 MG tablet Take 1 tablet (40 mg total) by mouth daily. Active bisoprolol (ZEBETA) 10 MG tablet Take 1 tablet (10 mg total) by mouth daily. Active hydroCHLOROthia zide (HYDRODIURIL) 25 MG tablet Take 1 tablet (25 mg total) by mouth daily. Active lisinopriL (PRINIVIL,ZESTR IL) 2.5 MG tablet Take 1 tablet (2.5 mg total) by mouth daily. Active multivitamin per tablet Take 1 tablet by mouth daily. Active warfarin (COUMADIN, JANTOVEN) 4 MG tablet Take 2 tablets (8 mg total) by mouth daily. Active levothyroxine (SYNTHROID, LEVOTHROID) 100 MCG tablet Take 1 tablet (100 mcg total) by mouth daily. 03/24/2023 Active Active Problems Problem Noted Date Diagnosed Date Aortic valve stenosis 04/13/2023 Bicuspid aortic valve 04/13/2023 Rheumatic fever 04/13/2023 Hypertension 04/16/2021 Hypothyroidism 04/16/2021 Mixed hyperlipidemia 04/16/2021 Paroxysmal atrial fibrillation 04/16/2021 Presence of prosthetic heart valve 04/16/2021 Social History Tobacco Use Types Packs/Day Years Used Date Smoking Tobacco: Never Smokeless Tobacco: Former Alcohol Use Standard Drinks/Week Comments Not Currently 0 (1 standard drink = 0.6 oz pur e alcohol) caffeine use Interpersonal Safety Answer Date Record ed Family or friends hurt you Not on file 01/19 /2024 Family or friends insult you Not on file Family or friends threaten you Not on file 0 08/26/2023 Family or friends scream or curse at you Not on file 08/26/2023 Housing Stability Answer Date Recorded Living situation today Not on file Living situation problems Not on file 2023 Food Insecurity Answer Date Recorded Food run out past 12 months Not on file 08/08 Food did not last past 12 months Not on file 08/26/2023 Employment Answer Date Recorded Help finding and keeping a job Not on file 0 08/26/2023 Family and Community Support Answer Tunde e Recorded Help with Day to Day Activities Not on file 08/26/2023 Feeling Lonely or Isolated Not on file 08/26 Educational Attainment Answer Date Sai rded Speak language other than Slovenian at home Not on file 08/26/2023 Want help with school or training Not on file 08/26/2023 Depression Answer Date Recorded PHQ-2 Risk Not on file 08/26/2023 Disabilities Answer Date Recorded Difficulty concentrating Not on file 024 Difficulty doing errands alone Not on file 0 08/26/2023 Substance Use Answer Date Recorded Used prescription meds for non-medical reasons N ot on file 08/26/2023 Used illegal drugs past 12 months Not on file 08/26/2023 Sex and Gender Information Value Date Recorded Sex Assigned at Not on file Legal Sex Male 7:50 PM CDT Gender Identity Not on file Sexual Orientation Not on file Last Filed Vital Signs Vital Sign Reading Time Taken Comments Blood Pressure 130/80 05/15/2024 9:32 AM EDT Pulse 55 05/15/2024 9:32 AM EDT Temperature - - Respiratory Rate 18 05/15/2024 9:32 AM EDT Oxygen Saturation 97% 05/15/2024 9:32 AM EDT Inhaled Oxygen Concentration - - Weight 119.3 kg (263 lb) 05/15/2024 9:32 AM EDT Height 193 cm (6' 4 ) 05/15/2024 9:32 AM EDT Body Mass Index 32.01 05/15/2024 9:32 AM EDT Plan of Treatment Upcoming Encounters Date Type Department Care Team (Late st Contact Info) Description 05/14/2025 8:30 AM EDT Office Visit [facility] Cardiology - [place] [address] [place] [address] Radha Rubin PA-C [address] [place] [address] Insurance [employer] CHOICE PPO BLUE CROSS/BLUE SHIELD Care Teams Human Service Worker Relationship Specialty Start Date End Date Rene Greene MD [address] [place] [id number] PCP - General Adolescent Medicine 05/03/22
--- OUTSIDE RECORDS SUMMARY | 2025-01-25 15:23 | XMS_ITS | Clinical Summary ---
Author Organization [employer] Address [address] [place] [address] Care Team Providers Care Gun Striper Name Role Phone Rnee Greene MD Primary Care Provider + [phone] Allergies No known active allergies Medications aspirin [...] 04/16/2021 Presence of prosthetic heart valve 04/16/2021 Family History Medical History Relation Name Comments Coronary artery disease Father Hypertension Father Hypertension Mother Relation Name Status Comments Father Mother Social History Tobacco Use Types Packs/Day Years Used Date Smoking Tobacco: Never Smokeless Tobacco: Former Alcohol Use Standard Drinks/Week Comments Not Currently 0 (1 standard drink = 0.6 oz pur e alcohol) caffeine use Interpersonal Safety Answer Date Record ed Family or friends hurt you Not on file 08/26 Family or friends insult you Not on [...] Date Sai rded Speak language other than Trinidadian at home Not on file 08/26/2023 Want [...] Description 05/14/2025 8:30 AM EDT Office Visit [facility] Cardiology - [place] [address] [place] [address] Radha Rubin PA-C [address] [facility] [address] [place] [address] Health Maintenance Due Date Last Done Comments CT Colonography 1971 Colonoscopy 1971 Colorectal Cancer Screening 1971 FOBT/FIT 1971 Fit-DNA (Cologuard) 1971 Sigmoidoscopy 1971 Depression Screening (12+) 1983 HIV Screening 1986 Hepatitis C Screening 1989 DTAP/TDAP/TD VACCINES (1 - Tdap) 1990 Pneumococcal 50+ years (1 of 2 - PCV) 1990 Lipid Panel 2006 Shingles Vaccine (Zoster) (1 of 2) 2021 COVID-19 VACCINE ( season) 2024 06/19/2021, 11/05/2020, 10/08/2020 Influenza Vaccine (Season Ended) 2025 06/09/20 Tobacco Cessation Counseling and Screening (12+) 05/15/2025 05/15/2024 Insurance HU[employer]NA CHOICE PPO BLUE CROSS/BLUE SHIELD Care Teams Gun Striper Relationship Specialty Start Date End Date Rene Greene MD [address] [place] [id number] PCP - General Adolescent Medicine 05/03/22
[2025-01-25 16:21] LABS: PHA INR Fingerstick 2.8 (0.9-1.1)
== END 2025-01-25 16:22 ==
LOC: ACC 15:22
PROVIDERS: PCP Internal Medicine Adolescent Medicine; Visit Provider Internal Medicine Adolescent Medicine
DX: Z95.2 Presence of prosthetic heart valve (principal)
CPT/HCPCS: 85610; 99211; G0463

== ENCOUNTER 2025-03-08 15:28 | Outpatient (CLI) | payer BC, SELFPAY ==
--- OUTSIDE RECORDS SUMMARY | 2025-03-08 15:30 | XMS_ITS | Referral Summary ---
Author Organization [employer] ([place], [place], [place], [place]) Address [address] [place] [address] Care Team Providers Care Plasma Specialist Name Role Phone Rene Greene MD Primary Care Provider + [phone] Allergies No known active allergies Medications aspirin [...] 0.6 oz pur e alcohol) caffeine use Food Insecurity Answer Date Recorded Food run [...] Date Sai rded Speak language other than Sao Tomean at home Not on file 08/26/2023 Want help with school or training Not on file 08/26/2023 Substance Use Answer Date Recorded Used [...] Care Team (Late st Contact Info) Description 05/20/2025 9:15 AM EDT Office Visit [facility] Cardiology - [place] [address] [place] [address] Radha Rubin PA-C 227 [facility] [address] [place] [address] Insurance [employer] CHOICE PPO BLUE CROSS/BLUE SHIELD Care Teams Plasma Specialist Relationship Specialty Start Date End Date Rene Greene MD [address] [place] [id number] PCP - General Adolescent Medicine 05/03/22
--- OUTSIDE RECORDS SUMMARY | 2025-03-08 15:30 | XMS_ITS | Clinical Summary ---
Author Organization [employer] ([place], [place], [place], [place]) Address [address] [place] [address] Care Team Providers Care Roof Foreman Name Role Phone Rene Greene MD Primary Care Provider + [phone] Allergies No known active allergies Medications aspirin [...] Date Sai rded Speak language other than Romanian at home Not on file 08/26/2023 Want [...] Description 05/20/2025 9:15 AM EDT Office Visit [facility] Cardiology - [place] [address] [place] [address] Radha Rubin PA-C [address] [facility] [address] [place] [address] Health Maintenance Due Date Last [...] (1 of 2) 2021 COVID-19 VACCINE ( - season) 2024 06/19/2021, 11/05/2020, 10/08/2020 Influenza Vaccine (#1) 2025 06/09/2020 Tobacco Cessation Counseling and Screening (12+) 05/15/2025 05/15/2024 Insurance [employer] CHOICE PPO BLUE CROSS/BLUE SHIELD Care Teams Roof Foreman Relationship Specialty Start Date End Date Rene Greene MD [address] [place] [id number] PCP - General Adolescent Medicine 05/03/22
[2025-03-08 15:53] LABS: PHA INR Fingerstick 2.7 (0.9-1.1)
== END 2025-03-08 15:55 ==
LOC: ACC 15:29
PROVIDERS: PCP Internal Medicine Adolescent Medicine; Visit Provider Internal Medicine Adolescent Medicine
DX: Z95.2 Presence of prosthetic heart valve (principal)
CPT/HCPCS: 85610; 99211; G0463

== ENCOUNTER 2025-04-19 15:43 | Outpatient (CLI) | payer BC, SELFPAY ==
--- OUTSIDE RECORDS SUMMARY | 2025-04-19 15:45 | XMS_ITS | Clinical Summary ---
Author Organization [employer] ([place], [place], [place], [place]) Address [address] [place] [address] Care Team Providers Care Warehouse Traffic Supervisor Name Role Phone Rene Greene MD Primary Care Provider + [phone] Allergies No known active allergies Medications aspirin [...] Date Sai rded Speak language other than Telugu at home Not on file 08/26/2023 Want [...] Description 05/20/2025 9:15 AM EDT Office Visit [facility] Cardiology - [place] [address] [place] [address] Radha Rubin PA-C [address] [facility] [address] [place] [address] Health Maintenance Due Date Last [...] 2) 2021 COVID-19 VACCINE ( - season) 2025 06/19/2021, 11/05/2020, 10/08/2020 Influenza Vaccine (#1) 2025 06/09/2020 Tobacco Cessation Counseling and Screening (12+) 05/15/2025 05/15/2024 Insurance [employer] CHOICE PPO BLUE CROSS/BLUE SHIELD Care Teams Warehouse Traffic Supervisor Relationship Specialty Start Date End Date Rene Greene MD [address] [place] [id number] PCP - General Adolescent Medicine 05/03/22
--- OUTSIDE RECORDS SUMMARY | 2025-04-19 15:45 | XMS_ITS | Referral Summary ---
Author Organization [employer] ([place], [place], [place], [place]) Address [address] [place] [address] Care Team Providers Care Financial Sales Advisor Name Role Phone Rene Greene MD Primary Care Provider + [phone] Allergies No known active allergies Medications aspirin [...] Date Sai rded Speak language other than Divehi at home Not on file 08/26/2023 Want [...] Description 05/20/2025 9:15 AM EDT Office Visit [facility] Cardiology - [place] [address] [place] [address] Radha Rubin PA-C 227 [facility] [address] [place] [address] Insurance [employer] CHOICE PPO BLUE CROSS/BLUE SHIELD Care Teams Financial Sales Advisor Relationship Specialty Start Date End Date Rene Greene MD [address] [place] [id number] PCP - General Adolescent Medicine 05/03/22
[2025-04-19 15:59] LABS: PHA INR Fingerstick 3.5 (0.9-1.1)
== END 2025-04-19 16:01 ==
LOC: ACC 15:43
PROVIDERS: PCP Internal Medicine Adolescent Medicine; Visit Provider Internal Medicine Adolescent Medicine
DX: Z79.01 Long term (current) use of anticoagulants (principal); Z95.2 Presence of prosthetic heart valve
CPT/HCPCS: 85610; 99211; G0463

== ENCOUNTER 2025-05-17 08:57 | Outpatient (CLI) | payer BC, SELFPAY ==
--- OUTSIDE RECORDS SUMMARY | 2025-05-17 09:00 | XMS_ITS | Clinical Summary ---
Author Organization [employer] ([place], [place], [place], [place]) Address [address] [place] [address] Care Team Providers Care Airplane Woodworker Name Role Phone Rene Greene MD Primary Care Provider + [phone] Allergies No known active allergies Medications aspirin [...] Date Sai rded Speak language other than Portuguese at home Not on file 08/26/2023 Want [...] Description 05/20/2025 9:15 AM EDT Office Visit [facility] Cardiology - [place] [address] [place] [address] Radha Rubin PA-C [address] [facility] [address] [place] [address] Health Maintenance Due Date Last [...] CHOICE PPO BLUE CROSS/BLUE SHIELD Care Teams Airplane Woodworker Relationship Specialty Start Date End Date Rene Greene MD [address] [place] [id number] PCP - General Adolescent Medicine 05/03/22
--- OUTSIDE RECORDS SUMMARY | 2025-05-17 09:00 | XMS_ITS | Referral Summary ---
Author Organization [employer] ([place], [place], [place], [place]) Address [address] [place] [address] Care Team Providers Care User Interface Designer Name Role Phone Rene Greene MD Primary Care Provider + [phone] Allergies No known active allergies Medications aspirin [...] Date Sai rded Speak language other than Puerto Rican at home Not on file 08/26/2023 Want [...] Office Visit [facility] Cardiology - [place] [address] [place] [address] Radha Rubin PA-C [address] [facility] 101 [place] [address] Insurance HU[employer] CHOICE PPO BLUE CROSS/BLUE SHIELD Care Teams User Interface Designer Relationship Specialty Start Date End Date Rene Greene MD [address] [place] [id number] PCP - General Adolescent Medicine 05/03/22
[2025-05-17 09:27] LABS: PHA INR Fingerstick 2.3 (0.9-1.1)
== END 2025-05-17 09:28 ==
LOC: ACC 08:58
PROVIDERS: PCP Internal Medicine Adolescent Medicine; Visit Provider Internal Medicine Adolescent Medicine
DX: Z79.01 Long term (current) use of anticoagulants (principal); Z95.2 Presence of prosthetic heart valve
CPT/HCPCS: 85610; 99211; G0463

== ENCOUNTER 2025-07-03 08:54 | Outpatient (CLI) | payer BC, SELFPAY ==
--- OUTSIDE RECORDS SUMMARY | 2025-05-20 08:15 | XMS_ITS | Encounter Summary ---
Author Organization [employer] ([place], [place], [place], [place], [place]) Address [address] [place] [address] Care Team Providers Care Food Order Expediter Name Role Phone Rene Greene MD Primary Care Provider [phone] Reason for Visit * Reason Comments Hypertension Encounter Details Date Type Department Care Team (Latest Contact Info) Description 05/20/2025 9:15 AM EDT Office Visit [facility] Cardiology - [place] [address] [place] [address] Radha Rubin PA-C [address] [address] Hypertension, unspecified type (Primary Dx); Encounter for follow-up for aortic valve replacement; Chronic anticoagulation Social History Tobacco Use Types Packs/Day Years Used Date Smoking Tobacco: Never Smokeless Tobacco: Former Alcohol Use Standard Drinks/Week Comments Not Currently 0 (1 standard drink = 0.6 oz pur e alcohol) caffeine use Family and Community Support Answer Tunde e Recorded Help with Day to Day Activities Not on file 08/26/2023 Feeling Lonely or Isolated Not on file 08/26 Educational Attainment Answer Date Sai rded Speak language other than Azeri at home Not on file 08/26/2023 Want [...] on file Sexual Orientation Not on file documented as of this encounter Last Filed Vital Signs Vital Sign Reading Time Taken Comments Blood Pressure 138/66 05/20/2025 9:58 AM EDT Pulse 58 05/20/2025 9:58 AM EDT Temperature - - Respiratory Rate 20 05/20/2025 9:58 AM EDT Oxygen Saturation 99% 05/20/2025 9:58 AM EDT Inhaled Oxygen Concentration - - Weight 121.1 kg (267 lb) 05/20/2025 9:58 AM EDT Height 193 cm (6' 4 ) 05/20/2025 9:58 AM EDT Body Mass Index 32.5 05/20/2025 9:58 AM EDT documented in this encounter Progress Notes * Radha Rubin PA-C - 05/20/2025 9:15 AM EDT History of Present Illness Delightful 54year-old gentleman previously followed with Dr. Sauceda, history of bicuspid aortic valvewith mechanical AVR 2015. Treated for hypertension. History of PAF. Comes today for routine annual follow-up. Continues to do well. Denies chest pain palpitations dizziness syncope or shortness of breath. Chronic anticoagulation with Coumadin managed with PCP to an INR of 2-3. No bleeding issues. Review of Systems 14 point review of systems is negative except as noted in HPI. Social History Tobacco Use Smoking status: Never Smokeless tobacco: Former Substance Use Topics Alcohol use: Not Currently Comment: caffeine use Drug use: Never Past Surgical History: Procedure Laterality Date AORTIC VALVE REPLACEMENT EYE SURGERY Past Medical History: Diagnosis Date Aortic valve stenosis Bicuspid aortic valve Hypertension 04/16/2021 Hypothyroidism 04/16/2021 Mixed hyperlipidemia 04/16/2021 Paroxysmal atrial fibrillation (HCC) 04/16/2021 Presence of prosthetic heart valve 04/16/2021 Rheumatic fever Family History Problem Relation Name Age of Onset Hypertension Mother Coronary artery disease Father Hypertension Father Current Outpatient Medications: aspirin 81 MG EC tablet, Take 1 tablet (81 mg total) by mouth daily., Disp: , Rfl: atorvastatin (LIPITOR) 40 MG tablet, Take 1 tablet (40 mg total) by mouth daily., Disp: , Rfl: bisoprolol (ZEBETA) 10 MG tablet, Take 1 tablet (10 mg total) by mouth daily., Disp: , Rfl: hydroCHLOROthiazide (HYDRODIURIL) 25 MG tablet, Take 1 tablet (25 mg total) by mouth daily., Disp: , Rfl: levothyroxine (SYNTHROID, LEVOTHROID) 100 MCG tablet, Take 1 tablet (100 mcg total) by mouth daily., Disp: , Rfl: lisinopriL (PRINIVIL,ZESTRIL) 2.5 MG tablet, Take 1 tablet (2.5 mg total) by mouth daily., Disp: , Rfl: multivitamin per tablet, Take 1 tablet by mouth daily., Disp: , Rfl: warfarin (COUMADIN, JANTOVEN) 4 MG tablet, Take 2 tablets (8 mg total) by mouth daily., Disp: , Rfl: Vitals: 05/20/25 0958 BP: 138/66 Pulse: 58 Resp: 20 SpO2: 99% Physical Exam Constitutional: Appearance: Normal appearance. Patient is normal weight. Cardiovascular: Rate and Rhythm: Normal rate and regular rhythm. Pulses: Normal pulses. Heart sounds: Normal heart sounds. Positive valve clicks Pulmonary: Effort: Pulmonary effort is normal. Breath sounds: Normal breath sounds. Abdominal: General: Abdomen is flat. Bowel sounds are normal. Palpations: Abdomen is soft. Skin: General: Skin is warm and dry. Capillary Refill: Capillary refill takes less than 2 seconds. Neurological: General: No focal deficit present. Mental Status: He is alert and oriented to person, place, and time. Mental status is at baseline. Psychiatric: Mood and Affect: Mood normal. Behavior: Behavior normal. Thought Content: Thought content normal. Judgment: Judgment normal. Lab Review EKG: Sinus bradycardia [address] changes Assessment -Bicuspid aortic valve s/p mechanical AVR 2016 -PAF-currently in NSR with no significant breakthrough palpitations on bisoprolol -Chronic anticoagulation-Coumadin for mechanical AVR (INR goal 2-3) -Hypertension-stable on current medical therapy -Hypothyroidism -Hyperlipidemia-stable on current medical therapy Plan EKG stable, exam unremarkable. Patient clinically stable with no cardiac complaints. Blood pressure stable on current medical regimen. Encouraged daily exercise low- sodium diet PCP will continue to manage anticoagulation to an INR 2-3. Follow-up in 1 year with EKG . Repeat echo in 2 yrs Radha Rubin PA-C documented in this encounter Plan of Treatment Upcoming Encounters Date Type Department Care Team (Late st Contact Info) Description 05/16/2026 9:00 AM EDT Office Visit [facility] Cardiology - [place] [address] [place] [address] Radha Rubin PA-C [address] [place] [address] documented as of this encounter Procedures Procedure Name Priority Date/Time Associated Diagnosis Comments FS_MODEL_IP_ECG 12-LEAD Routine 05/20/2025 3:47 PM EDT Hypertension, unspecified type documented in this encounter Results * ECG 12 lead (05/20/2025 3:47 PM EDT) Radha Rubin PA-C ECG ORDERABLES Edited Result - Final documented in this encounter Visit Diagnoses Diagnosis Hypertension, unspecified type- Primary Encounter for follow-up for aortic valve replacement Chronic anticoagulation Encounter for long-term (current) use of anticoagulants documented in this encounter Care Teams Food Order Expediter Relationship Specialty Start Date End Date Rene Greene MD [address] [place] [id number] PCP - General Adolescent Medicine 05/03/22 documented as of this encounter
--- OUTSIDE RECORDS SUMMARY | 2025-07-03 08:56 | XMS_ITS | Clinical Summary ---
Author Organization [employer] ([place], [place], [place], [place], [place]) Address [address] [place] [address] Care Team Providers Care Tongue And Groove Machine Operator Name Role Phone Rene Greene MD Primary Care Provider + [phone] Allergies No known active allergies Medications aspirin [...] 04/16/2021 Presence of prosthetic heart valve 04/16/2021 Encounters Date Type Department Care Team Description 05/20/2025 9:15 AM EDT Office Visit [facility] Cardiology - [address] [address] Radha Rubin PA-C Hypertension, unspecified type (Primary Dx); Encounter for follow-up for aortic valve replacement; Chronic anticoagulation from Last 3 Months Family History Medical History Relation Name Comments [...] Date Sai rded Speak language other than Brazilian at home Not on file 08/26/2023 Want [...] Mass Index 32.5 05/20/2025 9:58 AM EDT Plan of Treatment Upcoming Encounters Date Type Department Care Team (Late st Contact Info) Description 05/16/2026 9:00 AM EDT Office Visit [facility] Cardiology - [place] [address] [place] [address] Radha Rubin PA-C 227 [facility] [address] [place] [address] Health Maintenance Due Date Last [...] of 2) 2021 COVID-19 VACCINE ( - 2024- season) 2025 06/19/2021, 11/05/2020, 10/08/2020 Influenza Vaccine (#1) 2025 06/09/2020 Tobacco Cessation Counseling and Screening (12+) 05/20/2026 05/20/2025 Procedures Procedure Name Priority Date/Time Associated Diagnosis Comments FS_MODEL_IP_ECG 12-LEAD Routine 05/20/2025 3:47 PM EDT Hypertension, unspecified type from Last 3 Months Results * ECG 12 lead (05/20/2025 3:47 PM EDT) Radha Rubin PA-C ECG ORDERABLES Edited Result - Final from Last 3 Months Insurance BLUE CROSS/BLUE SHIELD Care Teams Tongue And Groove Machine Operator Relationship Specialty Start Date End Date Rene Greene MD [address] [place] [id number] PCP - General Adolescent Medicine 05/03/22
--- OUTSIDE RECORDS SUMMARY | 2025-07-03 08:56 | XMS_ITS | Referral Summary ---
Author Organization [employer] ([place], [place], [place], [place], [place]) Address [address] [place] [address] Care Team Providers Care Rig Builder Name Role Phone Rene Greene MD Primary Care Provider + [phone] Encounters Date Type Department Care Team Description 05/20/2025 9:15 AM EDT Office Visit [facility] Cardiology - [address] [address] Radha Rubin PA-C Hypertension, unspecified type (Primary Dx); Encounter for follow-up for aortic valve replacement; Chronic anticoagulation from Last 3 Months Allergies No known active allergies Medications aspirin [...] Date Sai rded Speak language other than Scottish at home Not on file 08/26/2023 Want [...] Description 05/16/2026 9:00 AM EDT Office Visit [facility] Cardiology - [place] [address] [place] [address] Radha Rubin PA-C 227 [facility] [address] [place] [address] Procedures Procedure Name Priority Date/Time Associated Diagnosis Comments FS_MODEL_IP_ECG 12-LEAD Routine 05/20/2025 3:47 PM EDT Hypertension, unspecified type from Last 3 Months Results * ECG 12 lead (05/20/2025 3:47 PM EDT) Radha Rubin PA-C ECG ORDERABLES Edited Result - Final from Last 3 Months Insurance BLUE CROSS/BLUE SHIELD Care Teams Rig Builder Relationship Specialty Start Date End Date Rene Greene MD [address] [place] [id number] PCP - General Adolescent Medicine 05/03/22
[2025-07-03 09:09] LABS: PHA INR Fingerstick 3.0 (0.9-1.1)
== END 2025-07-03 09:12 ==
LOC: ACC 08:54
PROVIDERS: PCP Internal Medicine Adolescent Medicine; Visit Provider Internal Medicine Adolescent Medicine
DX: Z79.01 Long term (current) use of anticoagulants (principal); Z95.2 Presence of prosthetic heart valve
CPT/HCPCS: 85610; 99211; G0463